=== PATIENT | female | born 1955 | race Caucasian/White ===

== ENCOUNTER 2021-10-12 15:28 | Emergency (ER) | payer MEDICARE ==
[~2021-10-12] VITALS: Ht 175.3 cm; Wt 129.5 kg
[2021-10-12 16:38] VITALS: TEMP 97.7
[2021-10-12 18:23] LABS: BASO % 0.8 % (0.0-2.0); EOS # 0.2 K/mm3 (0.0-0.7); EOS % 4.8 % (0.0-4.0); GRAN # 2.5 K/mm3 (1.4-6.5); GRAN % 62.3 % (42.2-75.2); HEMOGLOBIN 12.7 g/dl (12.5-16.0); LYMPH # 0.8 K/mm3 (1.2-3.4); LYMPH % 20.9 % (20.0-51.0); MEAN CELL VOLUME 97 fl (80.0-100.0); MEAN CORPUSCULAR HEMOGLOBIN 34 pg (27-31); MEAN CORPUSCULAR HGB CONC 35 g/dl (33.0-37.0); MEAN PLATELET VOLUME 12.7 fl (7.4-10.4); MONO # 0.4 K/mm3 (0.1-0.6); MONO % 10.9 % (1.7-9.3); PLATELET COUNT 61 K/mm3 (130-400); RED BLOOD COUNT 3.79 M/mm3 (4.10-5.30); REDCELL DISTRIBUTION WIDTH-CV 15.7 % (11.5-14.5)
[2021-10-12 18:42] LABS: ALBUMIN 2.9 gm/dL (3.4-4.8); BILIRUBIN,TOTAL 2.4 mg/dL (0.2-1.2); CALCIUM 8.8 mg/dL (8.4-10.2); CREATININE, serum 0.97 mg/dL (0.57-1.11); POTASSIUM 3.7 mmol/L (3.5-4.5); TOTAL PROTEIN 6.7 gm/dL (6.2-8.1)
[2021-10-12 18:48] LABS: MUCOUS Present (NOT PRESENT); PH 5 (5-8); URINE APPEARANCE Hazy (CLEAR/HAZY); URINE BACTERIA Rare /hpf (NONE SEEN); URINE BILIRUBIN Negative (NEGATIVE); URINE BLOOD 1+ (NEGATIVE); URINE COLOR Yellow (YELLOW); URINE GLUCOSE Negative (NEGATIVE); URINE KETONE Negative (NEGATIVE); URINE LEUKOCYTE ESTERASE 1+ (NEGATIVE); URINE NITRATE Negative (NEGATIVE); URINE PROTEIN(semi-quant) Negative (NEGATIVE); URINE UROBILINOGEN >=4.0 (NEGATIVE)
[2021-10-12 18:49] LABS: TROPONIN-I 0.01 ng/mL (0.00-0.033)
[2021-10-12 18:53] LABS: HEMATOCRIT 36.7 % (37.0-47.0)
[2021-10-12 19:12] LABS: COLLECTION METHOD CLEAN CATCH
[2021-10-12] MEDS ORDERED: LYRICA 100MG C100 M1 PO (19:57)
[2021-10-12] MEDS ORDERED: OMNICEF 300MG300 MG PO (19:59)
[2021-10-12 20:32] VITALS: BP 159/74; PULSE 76
--- NOTE | 2021-10-17 16:23 | NUR ---
APS report filed. [id number]
== END 2021-10-12 20:35 | disposition home or self-care (01) ==
LOC: COL.ER 15:28
PROVIDERS: Family Medicine; Physician Assistant
DX: D69.6 Thrombocytopenia, unspecified (principal); B19.20 Unspecified viral hepatitis C without hepatic coma; E11.9 Type 2 diabetes mellitus without complications; N39.0 Urinary tract infection, site not specified; F17.210 Nicotine dependence, cigarettes, uncomplicated; Z79.4 Long term (current) use of insulin; Z28.310 Unvaccinated for COVID-19

== ENCOUNTER 2021-10-17 21:17 | Emergency (ER) | payer MEDICARE ==
[~2021-10-17] VITALS: Ht 175.3 cm; Wt 127.3 kg
[~2021-10-17 21:17] MED LIST: LYRICA 100MG C100 M1 PO; OMNICEF 300MG300 MG PO
[2021-10-17 21:18] VITALS: TEMP 98.7
[2021-10-17 22:56] LABS: BASO # 0.1 K/mm3 (0.0-0.2); BASO % 1.5 % (0.0-2.0); EOS # 0.2 K/mm3 (0.0-0.7); EOS % 5.9 % (0.0-4.0); GRAN # 2.2 K/mm3 (1.4-6.5); GRAN % 65.6 % (42.2-75.2); HEMOGLOBIN 12.2 g/dl (12.5-16.0); LYMPH # 0.6 K/mm3 (1.2-3.4); LYMPH % 16.1 % (20.0-51.0); MEAN CELL VOLUME 99 fl (80.0-100.0); MEAN CORPUSCULAR HEMOGLOBIN 34 pg (27-31); MEAN CORPUSCULAR HGB CONC 35 g/dl (33.0-37.0); MEAN PLATELET VOLUME 12.7 fl (7.4-10.4); MONO # 0.4 K/mm3 (0.1-0.6); MONO % 10.6 % (1.7-9.3); PLATELET COUNT 53 K/mm3 (130-400); RED BLOOD COUNT 3.57 M/mm3 (4.10-5.30)
[2021-10-17 22:57] LABS: HEMATOCRIT 35.2 % (37.0-47.0)
[2021-10-17 23:03] LABS: INR 1.1 (0.8-3.0); PROTHROMBIN TIME 12.9 SECONDS (9.7-12.8)
[2021-10-17 23:05] LABS: COLLECTION METHOD CLEAN CATCH
[2021-10-17 23:11] LABS: PH 5 (5-8); URINE APPEARANCE Clear (CLEAR/HAZY); URINE BACTERIA Rare /hpf (NONE SEEN); URINE BILIRUBIN Negative (NEGATIVE); URINE BLOOD Negative (NEGATIVE); URINE COLOR Yellow (YELLOW); URINE GLUCOSE Negative (NEGATIVE); URINE KETONE Negative (NEGATIVE); URINE LEUKOCYTE ESTERASE Negative (NEGATIVE); URINE NITRATE Negative (NEGATIVE); URINE PROTEIN(semi-quant) Negative (NEGATIVE); URINE RBC 0-2 /hpf (0-2); URINE UROBILINOGEN >=4.0 (NEGATIVE)
[2021-10-17 23:14] LABS: ALBUMIN 2.9 gm/dL (3.4-4.8); CALCIUM 9.1 mg/dL (8.4-10.2); CREATININE, serum 1.41 mg/dL (0.57-1.11); POTASSIUM 3.6 mmol/L (3.5-4.5); TOTAL PROTEIN 6.6 gm/dL (6.2-8.1)
[2021-10-18] MEDS ORDERED: LASIX 20MG TABL20 MG PO (00:09)
[2021-10-18 00:37] VITALS: BP 133/66; PULSE 75
== END 2021-10-18 00:37 | disposition home or self-care (01) ==
LOC: COL.ER 21:17
PROVIDERS: Emergency Medicine Emergency Medical Services
DX: R60.0 Localized edema (principal); N28.9 Disorder of kidney and ureter, unspecified; D69.6 Thrombocytopenia, unspecified; Z28.310 Unvaccinated for COVID-19
CPT/HCPCS: J1940

== ENCOUNTER → 2021-12-26 | Outpatient (CLI) | payer MEDICARE ==
[2021-12-26] VITALS (13 sets, daily range): BP systolic 147–177; BP diastolic 72–101; PULSE 65–73; TEMP 98.8
[~2021-12-26] MED LIST changes: +ANORO IH; +B-121000 MCG PO; +DIOVAN HCT 25 M1 TAB PO; +HUMALOG100 U/ML SQ; +K-DUR 10 MEQ T10 MEQ PO; +LASIX 20MG TABL20 MG PO; +LASIX 40MG TABL40 MG PO; +LEVEMIR100 U/ML SQ; +NEURONTIN100 MG/CAP PO
[2021-12-26 10:37] LABS: INR 1.2 (0.8-3.0); PROTHROMBIN TIME 14.1 SECONDS (9.7-12.8)
--- NOTE | 2021-12-26 13:30 | NUR ---
Patient denies pain or sob. VSS. Changed into clothing independently. Independent to bathroom. W/C to exit with .
== END ==
LOC: COL.RAD 09:27
PROVIDERS: Internal Medicine Gastroenterology
DX: B18.2 Chronic viral hepatitis C (principal); D69.6 Thrombocytopenia, unspecified; C78.7 Secondary malignant neoplasm of liver and intrahepatic bile duct; R94.5 Abnormal results of liver function studies
CPT/HCPCS: 32109